=== PATIENT | male | born 1975 | race African-American/Black ===

== ENCOUNTER 2024-06-27 17:37 | Emergency (ER) | payer MEDICAID ==
[~2024-06-27] VITALS: Ht 177.8 cm; Wt 72.7 kg
[~2024-06-27 17:37] MED LIST: NOCURR
[2024-06-27 17:43] VITALS: TEMP 98
[2024-06-27] MEDS ORDERED: AMOX-457 PO (20:43)
[2024-06-27] MEDS: AMOX TR/POT CLAV 875 MG/125 MG TABLET PO ONE (20:50)
[2024-06-27] MEDS: PERTUSS(ACELL),DIPH,TET/PF 0.5 ML SYRINGE [ADULT] IM. ONE (20:50)
[2024-06-27 21:14] VITALS: BP 118/61; PULSE 84; RESP 16
== END 2024-06-27 21:21 | disposition home or self-care (01) ==
LOC: EMS 17:43
DX: S51.832A Puncture wound without foreign body of left forearm, initial encounter (principal); F17.210 Nicotine dependence, cigarettes, uncomplicated; F12.90 Cannabis use, unspecified, uncomplicated; W54.0XXA Bitten by dog, initial encounter; Y93.89 Activity, other specified; Y92.89 Other specified places as the place of occurrence of the external cause; Y99.8 Other external cause status
CPT/HCPCS: 90471; 90715; 99283; 99406